=== PATIENT | female | born 1955 | race Asian ===

== ENCOUNTER 2025-04-15 02:52 | Emergency (ER) | payer OTHER ==
[~2025-04-15] VITALS: Ht 157.5 cm; Wt 61.4 kg
[~2025-04-15 02:52] MED LIST: METF-444 PO; MICARDIS PO
[2025-04-15 02:56] VITALS: BP 162/67; PULSE 100; RESP 18; TEMP 98.4; O2SAT 99
== END 2025-04-15 03:05 | disposition left against medical advice (07) ==
LOC: EMS 02:53
DX: R04.0 Epistaxis (principal); Z53.21 Procedure and treatment not carried out due to patient leaving prior to being seen by health care provider